=== PATIENT | male | born 1960 | race Caucasian/White ===

== ENCOUNTER 2019-06-20 18:33 | Inpatient (IN) | payer MEDICARE, MEDICAID ==
[~2019-06-20] VITALS: Ht 182.9 cm; Wt 79.0 kg
[2019-06-20] MEDS ORDERED: albuterol 2.5 mg/0.5ml nebule NEB ONE (18:50)
[2019-06-20] MEDS ORDERED: albuterol 2.5 MG/3 ML nebule NEB ONE (18:55)
[2019-06-20 19:25] LABS: BASOPHILS % (AUTO) 0.4 % (0-1); EOSINOPHILS # (AUTO) 0.3 X10'3 (0-0.9); EOSINOPHILS % (AUTO) 3.1 % (0-6); HEMATOCRIT 42.8 % (42.0-52.0); HEMOGLOBIN 14.4 g/dl (14.0-17.9); LYMPHOCYTES # (AUTO) 0.4 X10'3 (1.1-4.8); LYMPHOCYTES % (AUTO) 3.9 % (21-51); MEAN CORPUSCULAR HEMOGLOBIN 30.9 PG (27.0-31.0); MEAN CORPUSCULAR HGB CONC 33.7 g/dL (33.0-36.5); MEAN CORPUSCULAR VOLUME 91.6 FL (78-98); MEAN PLATELET VOLUME 7.5 FL (7.4-10.4); MONOCYTES # (AUTO) 0.9 X10'3 (0-0.9); MONOCYTES % (AUTO) 9.5 % (2-12); NEUTROPHILS % (AUTO) 83.1 % (42-75); PLATELET COUNT 260 X10'3 (140-440); RED BLOOD COUNT 4.68 X10'6 (4.70-6.10); RED CELL DISTRIBUTION WIDTH 14.9 % (11.5-14.5); WHITE BLOOD COUNT 9.7 X10'3 (4.5-11.0)
[2019-06-20 19:39] LABS: ALANINE AMINOTRANSFERASE 129 U/L (12-78); ALBUMIN 2.1 G/DL (3.4-5.0); ALBUMIN/GLOBULIN RATIO 0.5 (1.1-1.5); ALKALINE PHOSPHATASE 101 IU/L (46-116); ANION GAP 11 (8-16); ASPARTATE AMINO TRANSFERASE 107 U/L (10-37); BILIRUBIN,TOTAL 0.3 MG/DL (0.1-1.0); BLOOD UREA NITROGEN 13 MG/DL (7-18); BUN/CREATININE RATIO 15.1 (5.4-32.0); CALCIUM 8.6 MG/DL (8.5-10.1); CHLORIDE 98 MMOL/L (99-107); CREATININE 0.86 MG/DL (0.60-1.10); GLUCOSE 100 MG/DL (70-104); POTASSIUM 4.4 MMOL/L (3.5-5.1); SODIUM 140 MMOL/L (135-145); TOTAL CARBON DIOXIDE 31.1 MMOL/L (24-32); TOTAL PROTEIN 6.3 G/DL (6.4-8.2); eGFR > 90 ML/MIN
[2019-06-20] MEDS ORDERED: azithromycin 250mg tablet PO ONE (20:20)
[2019-06-20] MEDS ORDERED: acetaminophen 325mg tablet PO ONE (20:20)
[2019-06-20] MEDS ORDERED: normal saline 1000ML IV soln IV ONE (20:20)
[2019-06-20] MEDS ORDERED: CefTRIAXone 2gm/D5W 50ml 50 ML IV ONE (20:20)
[2019-06-20] MEDS ORDERED: dexamethasone sod phosphate 10mg/ml inj IV STA (20:36)
[2019-06-20] MEDS ORDERED: albuterol 2.5 MG/3 ML nebule CONTNEB PRN (20:40)
[2019-06-20] MEDS: normal saline 1000ml 1,000 ML IV SCH (21:36)
[2019-06-20] MEDS ORDERED: potassium CL 10mEq/100ml bag 100 ML IV PRN ×2 (21:40)
[2019-06-20] MEDS ORDERED: ondansetron/PF 4mg/2ml inj IV PRN (21:40)
[2019-06-20] MEDS ORDERED: magnesium Cl slow-release 64mg tablet PO PRN (21:40)
[2019-06-20] MEDS ORDERED: magnesium 4gm in 100ml NS 100 ML IV PRN (21:40)
[2019-06-20] MEDS ORDERED: magnesium 2GM in 50ml NS 50 ML IV PRN (21:40)
[2019-06-20] MEDS ORDERED: mag hydrox/Alum hydrox/simeth 30ml oral suspension PO PRN (21:40)
[2019-06-20] MEDS ORDERED: magnesium hydroxide 30ml (MOM) UD suspension PO PRN (21:40)
[2019-06-20] MEDS ORDERED: acetaminophen 325mg tablet PO PRN (21:40)
[2019-06-20] MEDS ORDERED: potassium Cl 20 mEq SR tablet PO PRN ×2 (21:40)
[2019-06-20] MEDS ORDERED: LEVO100T PO (22:17)
[2019-06-20] MEDS ORDERED: GABA-530 PO (22:17)
[2019-06-20] MEDS ORDERED: RANI150T8 PO (22:17)
[2019-06-20] MEDS ORDERED: BACL10TA PO (22:17)
[2019-06-20] MEDS ORDERED: MONT10TA21 PO (22:17)
[2019-06-20] MEDS ORDERED: TRAZ-251 PO (22:17)
[2019-06-20] MEDS ORDERED: LISI-600 PO (22:17)
[2019-06-20] MEDS ORDERED: PER5325T PO (22:17)
[2019-06-20] MEDS ORDERED: ALBU18HF2 INH (22:17)
[2019-06-20] MEDS ORDERED: DULO-31 PO (22:17)
[2019-06-20 22:32] VITALS: BP 134/85
--- NOTE | 2019-06-20 22:32 | NUR ---
pt brought to unit via wheelchair, oriented to room call light in reach, BLL. Vitals 98.7F, 94HR 18RR, 95%RA, 112/61. Will continue to monitor
--- NOTE | 2019-06-20 22:32 | NUR ---
Report received from MICHAEL Cavanaugh. Awaiting pt arrival to unit
[2019-06-20] MEDS ORDERED: oxyCODONE/APAP 5-325mg tablet PO PRN (22:35)
[2019-06-21] MEDS: methylPREDNISolone sod succ 125mg/2ml vial IV SCH ×2 (00:34→08:07)
[2019-06-21] MEDS: nicotine 14mg patch - 24hr TD SCH ×2 (00:39→07:50)
[2019-06-21] MEDS: ipratropium/albuterol 3ml nebule NEB SCH ×3 (02:40→11:00)
[2019-06-21 06:16] LABS: BASOPHILS % (AUTO) 0.1 % (0-1); EOSINOPHILS % (AUTO) 0.1 % (0-6); HEMATOCRIT 37.6 % (42.0-52.0); HEMOGLOBIN 12.7 g/dl (14.0-17.9); LYMPHOCYTES # (AUTO) 0.1 X10'3 (1.1-4.8); LYMPHOCYTES % (AUTO) 2.1 % (21-51); MEAN CORPUSCULAR HEMOGLOBIN 31.1 PG (27.0-31.0); MEAN CORPUSCULAR HGB CONC 33.8 g/dL (33.0-36.5); MEAN CORPUSCULAR VOLUME 91.8 FL (78-98); MONOCYTES # (AUTO) 0.1 X10'3 (0-0.9); MONOCYTES % (AUTO) 1.7 % (2-12); NEUTROPHILS # (AUTO) 4.6 X10'3 (1.8-7.7); PLATELET COUNT 186 X10'3 (140-440); RED BLOOD COUNT 4.09 X10'6 (4.70-6.10); RED CELL DISTRIBUTION WIDTH 14.7 % (11.5-14.5); WHITE BLOOD COUNT 4.7 X10'3 (4.5-11.0)
--- NOTE | 2019-06-21 06:25 | NUR ---
Patient in room [facility]. I have received report from MICHAEL QUIGLEY and had the opportunity to ask questions and assume patient care.
--- NOTE | 2019-06-21 06:32 | NUR ---
Problems reprioritized. Patient report given, questions answered & plan of care reviewed with MICHAEL Cornejo.
[2019-06-21 06:52] LABS: ALANINE AMINOTRANSFERASE 112 U/L (12-78); ALBUMIN 1.6 G/DL (3.4-5.0); ALBUMIN/GLOBULIN RATIO 0.4 (1.1-1.5); ALKALINE PHOSPHATASE 82 IU/L (46-116); ANION GAP 7 (8-16); ASPARTATE AMINO TRANSFERASE 77 U/L (10-37); BILIRUBIN,TOTAL 0.1 MG/DL (0.1-1.0); BLOOD UREA NITROGEN 11 MG/DL (7-18); BUN/CREATININE RATIO 15.5 (5.4-32.0); CALCIUM 7.9 MG/DL (8.5-10.1); CHLORIDE 106 MMOL/L (99-107); CREATININE 0.71 MG/DL (0.60-1.10); GLUCOSE 176 MG/DL (70-104); POTASSIUM 4.4 MMOL/L (3.5-5.1); SODIUM 139 MMOL/L (135-145); TOTAL CARBON DIOXIDE 26.5 MMOL/L (24-32); TOTAL PROTEIN 5.3 G/DL (6.4-8.2); eGFR > 90 ML/MIN
[2019-06-21 07:00] VITALS: BP 133/67
[2019-06-21] MEDS: normal saline 1000ml 1,000 ML IV SCH ×2 (07:36→08:39)
[2019-06-21] MEDS ORDERED: K and/or MAG REPLACEMENT MC SCH (08:00)
[2019-06-21] MEDS ORDERED: duloxetine 30mg CAPSULE.DR PO SCH (08:00)
[2019-06-21] MEDS ORDERED: levoTHYROXINE 100mcg tablet PO SCH (08:00)
[2019-06-21] MEDS ORDERED: enoxaparin 40mg/0.4ml syringe SQ SCH (08:00)
[2019-06-21] MEDS ORDERED: gabapentin 100mg capsule PO SCH (08:00)
[2019-06-21] MEDS ORDERED: montelukast 10mg tablet PO SCH (08:00)
[2019-06-21] MEDS ORDERED: famotidine 20mg tablet PO SCH (08:00)
[2019-06-21] MEDS ORDERED: baclofen 10mg tablet PO SCH (08:00)
[2019-06-21] MEDS ORDERED: lisinopril 5mg tablet PO SCH (08:00)
[2019-06-21] MEDS ORDERED: LEVO750T21 PO (10:04)
[2019-06-21] MEDS ORDERED: ALBU18HF2 INH (10:21)
--- NOTE | 2019-06-21 10:54 | NUR ---
PATIENT A&O AND IN NO APPARENT DISTRESS. NO COMPLAINTS. DISCUSSED WITH PATIENT DISCHARGE INSTRUCTIONS AND NEW PRESCRIPTIONS. PATIENT VERBALIZES UNDERSTANDING OF TEACHING. PATIENT IS READY FOR DC. HE IS AWAITING FOR HIS PRESCRIPTIONS TO BE DELIVERED TO BEDSIDE AND FOR HIS SPOUSE FOR TRANSPORTATION.
--- NOTE | 2019-06-21 12:23 | NUR ---
[facility]. patient dc'd with all personal belongings.
[2019-06-21] MEDS ORDERED: azithromycin/NS 500mg/250ml 250 ML IV SCH (20:00)
[2019-06-21] MEDS ORDERED: CefTRIAXone/D5W-Rocephin 1gm 50 ML IV SCH (20:00)
[2019-06-21] MEDS ORDERED: traZODone 50mg tablet PO SCH (21:00)
== END 2019-06-21 12:15 | disposition home or self-care (01) | DRG 193 ==
LOC: ER 20:54 → SUR 3N 22:47 → CMPBEDREQ 22:57
PROVIDERS: ADMIT Family Medicine; ATTEND Internal Medicine
DX: J18.1 Lobar pneumonia, unspecified organism (principal); J96.90 Respiratory failure, unspecified, unspecified whether with hypoxia or hypercapnia; J44.1 Chronic obstructive pulmonary disease with (acute) exacerbation; J44.0 Chronic obstructive pulmonary disease with (acute) lower respiratory infection; R74.0 Nonspecific elevation of levels of transaminase and lactic acid dehydrogenase [LDH]; F12.90 Cannabis use, unspecified, uncomplicated; G89.29 Other chronic pain; M50.30 Other cervical disc degeneration, unspecified cervical region; F17.210 Nicotine dependence, cigarettes, uncomplicated; E03.9 Hypothyroidism, unspecified; I10 Essential (primary) hypertension; Z79.899 Other long term (current) drug therapy; Z80.0 Family history of malignant neoplasm of digestive organs; Z80.1 Family history of malignant neoplasm of trachea, bronchus and lung; Z83.3 Family history of diabetes mellitus; Z88.0 Allergy status to penicillin; Z71.6 Tobacco abuse counseling
CPT/HCPCS: 36415; 71046; 80053; 83605; 83735; 83880; 84145; 84443; 85025; 87040; 87081; 93005; 94640; 94644; 94760; 96365; 96375; 99285; G0378; J0696; J1100; J1650; J2930; J7030; J7611